=== PATIENT | female | born 1940 | race Caucasian/White ===

== ENCOUNTER 2020-01-12 10:02 | Emergency (ER) | payer SELFPAY ==
[~2020-01-12] VITALS: Ht 154.9 cm; Wt 72.6 kg
[2020-01-12 10:02] VITALS: BP 140/63
--- NOTE | 2020-01-12 10:04 | NUR ---
BIBA TAKEN TO BED 5
--- NOTE | 2020-01-12 10:12 | NUR ---
CHARGE NURSE WITH [place] [employer] AT BEDSIDE
[2020-01-12] MEDS ORDERED: ATOR20TA PO (10:20)
[2020-01-12] MEDS ORDERED: POTA8TER12 PO ×2 (10:20)
[2020-01-12] MEDS ORDERED: BENA40TA PO (10:20)
[2020-01-12] MEDS ORDERED: FERR325E14 PO (10:20)
[2020-01-12] MEDS ORDERED: SYN.075 PO (10:20)
[2020-01-12] MEDS ORDERED: PANT40EC PO (10:20)
[2020-01-12] MEDS ORDERED: CARV6.25 PO (10:20)
--- NOTE | 2020-01-12 10:21 | NUR ---
79 Y/O F BIBA FROM HOME C/C SLIPPED ON RICE AND FELL ON HER BACK THIS MORNING. PER PT SON TOUCHED HER HEAD AND MADE HER FALL TO THE FLOOR HURTING HER BACK, PT DENIES HEAD TRAUMA/LOC. PER PT NEIGHBORS CALLED AMBULANCE TO HELP, SON DID NOT CALL 911. POLICE AT BEDSIDE FOR FURTHER REPORT. PT A/OX4, VSS, EUPNIC, NO RESPIRATORY DISTRESS. PUPILS PERRLA. COMPLAINTS OF BACK PAIN, NO DISCOLORATION NOTED ON ASSESSMENT, PAIN IN THE UPPER BACK REGION. NKA. HX,RX - ON FILE
--- NOTE | 2020-01-12 10:24 | NUR ---
OFFICER DAVY ; [facility] [phone]
[2020-01-12] MEDS ORDERED: HYDROcodone/APAP 5/325 MG 1 TAB TAB PO ONE (11:00)
--- NOTE | 2020-01-12 11:57 | NUR ---
REPORT GIVEN TO ANDREW BOWIE FOR CONTINUITY OF CARE
--- NOTE | 2020-01-12 11:58 | NUR ---
REPORT RECEIVED FROM CIARA, TRANSFER OF CARE AT THIS TIME.
--- NOTE | 2020-01-12 12:00 | NUR ---
PT IS BACK FROM [facility] SCAN VIA [facility].
--- NOTE | 2020-01-12 12:09 | NUR ---
XRAY IS AT BEDSIDE.
--- NOTE | 2020-01-12 12:53 | NUR ---
DR. PALAFOX IS RE-EVALUATING PT AT BEDSIDE.
--- NOTE | 2020-01-12 13:19 | NUR ---
CALLED PT'S DAUGHTER AMY @ [phone] FOR ASSISTANT DEAN. PT'S DAUGHTER WILL BE HERE IN 40 MINS.
--- NOTE | 2020-01-12 14:04 | NUR ---
IV ON LEFT HAND REMOVED THAT WAS PLACED BY EMS.
--- NOTE | 2020-01-12 14:19 | NUR ---
PT WAITING IN ER BED FOR DAUGHTER TO ARRIVED TO TAKE PATIENT HOME.
[2020-01-12 15:00] VITALS: BP 118/58
--- NOTE | 2020-01-12 15:00 | NUR ---
Patient discharged with v/s stable. Written and verbal after care instructions given and explained to daughter. Patient alert, oriented and daughter verbalized understanding of instructions. Ambulatory with steady gait. All questions addressed prior to discharge. ID band removed. Patient advised to follow up with PMD. Rx of Motrin given. Patient educated on indication of medication including possible reaction and side effects. Opportunity to ask questions provided and answered.
== END 2020-01-12 15:00 | disposition home or self-care (01) ==
LOC: MED 10:02
DX: S43.492A Other sprain of left shoulder joint, initial encounter (principal); S70.02XA Contusion of left hip, initial encounter; E11.9 Type 2 diabetes mellitus without complications; E07.9 Disorder of thyroid, unspecified; Y04.0XXA Assault by unarmed brawl or fight, initial encounter; Y93.89 Activity, other specified; Y92.89 Other specified places as the place of occurrence of the external cause; Y99.8 Other external cause status; I11.9 Hypertensive heart disease without heart failure; Z79.899 Other long term (current) drug therapy
CPT/HCPCS: 73030; 73502; 73552; 99284; Q0092